=== PATIENT | female | born 1965 | race Caucasian/White ===

== ENCOUNTER 2017-01-11 23:28 | Observation (INO) | payer OTHER ==
[2017-01-11 23:42] VITALS: BMI 30.5
[2017-01-12] MEDS: Sodium Chloride 0.9% 1,000 ML IV STA ×2 (00:11→00:55)
[2017-01-12 00:56] LABS: PH,URINE 6.5 (4.7-8.0); URINE BILIRUBIN NEGATIVE (NEGATIVE); URINE BLOOD NEGATIVE (NEGATIVE); URINE GLUCOSE (UA) >=1000 mg/dL (NEGATIVE); URINE KETONE NEGATIVE (NEGATIVE); URINE LEUKOCYTE ESTERASE NEGATIVE Leu/uL (NEGATIVE); URINE PROTEIN NEGATIVE mg/dL (<30 mg/dL); URINE UROBILINOGEN 0.2 E.U./dL (<1 E.U./dL)
[2017-01-12 00:59] LABS: URINE APPEARANCE SL CLOUDY (CLEAR); URINE COLOR STRAW (YELLOW)
[2017-01-12 01:15] LABS: BASO # 0.02 K/mm3 (0.0-2.0); BASO % 0.3 % (0.0-3.0); EOS # 0.1 (0.0-0.7); EOS % 1.3 % (1.5-5.0); GRAN # 2.79 (1.4-6.5); HEMATOCRIT 43.3 % (36.0-48.0); LYMPH # 3.4 (1.2-3.4); LYMPH % 50.5 % (22.0-35.0); MEAN CELL VOLUME 83.4 fl (80.0-105.0); MEAN CORPUSCULAR HEMOGLOBIN 28.9 pg (25.0-35.0); MEAN CORPUSCULAR HGB CONC 34.6 g/dl (31.0-37.0); MEAN PLATELET VOLUME 10.3 fl (7.0-11.0); MONO # 0.5 (0.1-0.6); MONO % 6.9 % (1.0-6.0); RED CELL DISTRIBUTION WIDTH 13.3 % (11.5-14.5); WHITE BLOOD COUNT 6.8 10^3/ul (4.5-11.0)
[2017-01-12 01:20] LABS: INR 1.08 (0.93-1.08); PARTIAL THROMBOPLASTIN TIME 27.8 Seconds (23.7-30.8)
[2017-01-12 01:24] LABS: ALB/GLOB RATIO 1.3 (1.1-1.8); ALKALINE PHOSPHATASE 114 U/L (38-126); ALT/SGPT 46 U/L (7-56); AST/SGOT 38 U/L (14-36); BLOOD UREA NITROGEN 12 mg/dL (7-21); CALCIUM 9.5 mg/dL (8.4-10.5); CARBON DIOXIDE 29 mmol/L (21-33); CHLORIDE 100 mmol/L (98-107); GFR AFRICAN-AMERICAN > 60; LIPASE 86 U/L (23-300); POTASSIUM 3.7 mmol/L (3.6-5.0); SODIUM 140 mmol/L (132-148); TOTAL PROTEIN 7.2 g/dL (5.8-8.3)
--- NOTE | 2017-01-12 01:33 | ED PDOC ---
Arrival/HPI - General Chief Complaint: Trauma Time Seen by Provider: 01/12/17 00:04 Historian: Patient, Family - History of Present Illness Narrative History of Present Illness (Text): 01/12/17 01:29 51 yr old female with hx of DM and anemia presents today with syncope. pt states she was going to stand up from the chair and felt dizzy, developed chest pain and passed out. pt was found by son on the floor. pt c/o left leg pain. son states patient was a little confused when he first saw the patient but states she has returned to baseline now. pt c/o headache and dizziness. denies abdominal pain. denies back pain. no fever/chills. states she was feeling okay earlier today. no n/v/d. no other complaints. Time/Duration: Prior to Arrival Symptom Onset: Sudden Symptom Course: Improving Quality: Aching Severity Level: 8 Past Medical History - Provider Review Nursing Documentation Reviewed: Yes - Travel History Have you recently traveled outside [place] w/in the past 3 mons?: No - Cardiac Hx Cardiac Disorders: Yes Hx Angina: (chest pain) Hx Hypertension: Yes - Pulmonary Hx Respiratory Disorders: No - Neurological Hx Neurological Disorder: No - HEENT Hx HEENT Disorder: No - Renal Hx Renal Disorder: No - Endocrine/Metabolic Hx Endocrine Disorders: Yes Hx Diabetes Mellitus Type 1: Yes - Hematological/Oncological Hx Blood Disorders: No - Integumentary Hx Dermatological Disorder: No - Musculoskeletal/Rheumatological Hx Musculoskeletal Disorders: No - Gastrointestinal Hx Gastrointestinal Disorders: No - Genitourinary/Gynecological Hx Genitourinary Disorders: No - Psychiatric Hx Psychophysiologic Disorder: No Hx Substance Use: No - Past Surgical History Past Surgical History: Non-Contributing - Suicidal Assessment Feels Threatened In Home Enviroment: No Family/Social History - Physician Review Nursing Documentation Reviewed: Yes Family/Social History: Unknown Family HX Smoking Status: Never Smoked Hx Alcohol Use: No Hx Substance Use: No Hx Substance Use Treatment: No Allergies/Home Meds Allergies/Adverse Reactions: Allergies No Known Allergies Allergy (Verified 01/11/17 23:43) Home Medications: Home Meds Medication Instructions Recorded Confirmed Glyburide/Metformin HCl 1,000 mg PO BID 08/04/15 01/11/17 [Glucovance 5 mg-500 mg] Sitagliptin Phos/Metformin HCl 1 each PO DAILY 08/04/15 01/11/17 [Janumet 50-500 mg Tablet] Review of Systems - Review of Systems Constitutional: Fatigue. absent: Fevers Eyes: absent: Photophobia ENT: absent: Sinus Congestion Respiratory: absent: SOB, Cough Cardiovascular: Chest Pain, Palpitations Gastrointestinal: absent: Abdominal Pain, Nausea, Vomiting Genitourinary Female: absent: Dysuria Musculoskeletal: Arthralgias, Neck Pain. absent: Back Pain Skin: absent: Rash, Pruritis Neurological: Headache, Dizziness Psychiatric: absent: Anxiety, Depression, Suicidal Ideation Physical Exam Vital Signs Reviewed: Yes Vital Signs Temp Pulse Resp BP Pulse Ox 01/11/17 23:40 97.7 F 85 20 170/70 H 95 Temperature: Afebrile Blood Pressure: Hypertensive Pulse: Regular Respiratory Rate: Normal Appearance: Positive for: Well-Appearing, Non-Toxic, Comfortable Pain Distress: None Mental Status: Positive for: Alert and Oriented X 3 Finger Stick Blood Glucose: 342 - Systems Exam Head: Present: Atraumatic Pupils: Present: PERRL Extroacular Muscles: Present: EOMI Conjunctiva: Present: Normal Ears: Present: Normal Mouth: Present: Moist Mucous Membranes Pharnyx: Present: Normal Nose (External): Present: Atraumatic Nose (Internal): Present: Normal Inspection Neck: Present: Normal Range of Motion, Paraspinal Tenderness. No: MIDLINE TENDERNESS Respiratory/Chest: Present: Clear to Auscultation, Good Air Exchange. No: Respiratory Distress, Accessory Muscle Use Cardiovascular: Present: Regular Rate and Rhythm, Normal S1, S2. No: Murmurs Abdomen: Present: Normal Bowel Sounds. No: Tenderness, Distention, Peritoneal Signs, Rebound, Guarding Back: Present: Normal Inspection Upper Extremity: Present: Normal Inspection, Normal ROM, Capillary Refill < 2s Lower Extremity: Present: Normal Inspection, NORMAL PULSES, Normal ROM, Tenderness (+ ttp over the entire left leg; no edema, no erythema; no ecchymosis ; full rom of foot, ankle, knee, hip; pelvis stable ), Neurovascularly Intact, Capillary Refill < 2 s. No: CALF TENDERNESS, Swelling, Erythema, Deformity, Temperature Abnormalties Neurological: Present: GCS=15, Speech Normal, Motor Func Grossly Intact, Normal Sensory Function Skin: Present: Warm, Dry Psychiatric: Present: Alert, Oriented x 3 Medical Decision Making ED Course and Treatment: 01/12/17 01:35 51yr old female with syncope. c/o cp and dizziness. pt hypertensive. c/o entire left leg pain, but was able to ambulate to bathroom with assistance in ER. cbc; wnl cmp; glucose; 355 trop; wnl ekg; NSR at 84b/m no st elevations, normal axis, normal intervals. cxr: wnl ct head: FINDINGS: Brain: Minimal atrophy. No intracranial hemorrhage. No mass. No edema. Ventricles: No hydrocephalus. Bones/joints: No acute fracture. Soft tissues: Unremarkable. Sinuses: No acute sinusitis. Mastoid air cells: No mastoid effusion. Orbits: Unremarkable as visualized. IMPRESSION: 1. No intracranial hemorrhage. ct neck:FINDINGS: Vertebrae: No acute fracture. Straightening of cervical spine. Discs/spinal canal/neural foramina: Early to mild degenerative disc disease within mid cervical spine. Moderate degenerative disc disease within lower cervical spine. Disc herniations within mid to lower cervical spine, suboptimally evaluated. Mild indentation thecal sac/cord mid and lower cervical spine. Neuroforaminal narrowing within lower cervical spine. Soft tissues: Unremarkable. Thyroid: Calcification within LEFT lobe. Lung apices: Unremarkable as visualized. IMPRESSION: 1. No fracture. 2. Incidental/non-acute findings are described above. UA: wnl xrays of LEFT hip, femur, knee, tib/fib, foot; no fractures all results discussed with patient and family. ASA given Po case discussed with dr. fiore; she would like patient to be admitted to hospitalist. case discussed with dr. ruiz; accepts admission will admit observational status to tele for syncope, chest pain impression; syncope, chest pain admit observational status; tele. - Lab Interpretations Lab Results: 01/12/17 00:45 01/12/17 00:45 Lab Results 01/12/17 00:45: WBC 6.8 D, RBC 5.19, Hgb 15.0, Hct 43.3, MCV 83.4, MCH 28.9, MCHC 34.6, RDW 13.3, Plt Count 152, MPV 10.3, Gran % 41.0 L, Lymph % (Auto) 50.5 H, [place] % (Auto) 6.9 H, Eos % (Auto) 1.3 L, Baso % (Auto) 0.3, Gran # 2.79 , Lymph # 3.4, [place] # 0.5, Eos # 0.1, Baso # 0.02 01/12/17 00:45: Sodium 140, Potassium 3.7, Chloride 100, Carbon Dioxide 29, Anion Gap 15, BUN 12, Creatinine 0.7, Est GFR ( Amer) > 60, Est GFR (Non- Af Amer) > 60, Random Glucose 355 H* D, Calcium 9.5, Total Bilirubin 1.0, AST 38 H, ALT 46, Alkaline Phosphatase 114, Lactate Dehydrogenase 405, Total Creatine Kinase 96, Troponin I < 0.01, Total Protein 7.2, Albumin 4.1, Globulin 3.2, Albumin/Globulin Ratio 1.3, Lipase 86 01/12/17 00:45: PT 11.7, INR 1.08, APTT 27.8 01/12/17 00:40: Urine Color Straw, Urine Appearance Sl cloudy, Urine pH 6.5, Ur Specific [place] 1.010, Urine Protein Negative, Urine Glucose (UA) >=1000, Urine Ketones Negative, Urine Blood Negative, Urine Nitrate Negative, Urine Bilirubin Negative, Urine Urobilinogen 0.2, Ur Leukocyte Esterase Negative - RAD Interpretation Radiology Orders: 01/12/17 00:04 CERVICAL SPINE W/O CONTRAST [CT] Stat HEAD W/O CONTRAST [CT] Stat CHEST PORTABLE [RAD] Stat 01/12/17 00:11 FEMUR MIN 2 VIEWS LT [RAD] Stat FOOT LEFT 3 VIEWS ROUTINE [RAD] Stat HIP MIN 2V W/ PELVIS LT [RAD] Stat KNEE LEFT 2 VIEWS (AP & LAT) [RAD] Stat TIBIA FIBULA LEFT [RAD] Stat - Medication Orders Current Medication Orders: Sodium Chloride (Sodium Chloride 0.9%) 1,000 mls @ 999 mls/hr IV .Q1H1M STA Stop: 01/12/17 02:55 Discontinued Medications Aspirin (Aspirin) 325 mg PO STAT STA Stop: 01/12/17 02:00 Sodium Chloride (Sodium Chloride 0.9%) 1,000 mls @ 999 mls/hr IV .Q1H1M STA Stop: 01/12/17 01:05 Last Admin: 01/12/17 00:55 Dose: 999 mls/hr eMAR Start Stop Document 01/12/17 00:55 OCS (Rec: 09/29/17 00:55 OCS [id number]) Intravenous Solution Start Date 01/12/17 Start Time 00:55 Disposition/Present on Arrival - Present on Arrival Any Indicators Present on Arrival: No History of DVT/PE: No History of Uncontrolled Diabetes: No Urinary Catheter: No History of Decub. Ulcer: No History Surgical Site Infection Following: None - Disposition Have Diagnosis and Disposition been Completed?: Yes Diagnosis: Syncope, Chest pain, Hyperglycemia Disposition: HOSPITALIZED Disposition Time: 02:20 Patient Plan: Observation Condition: FAIR Discharge Instructions (ExitCare): Syncope (ED), Chest Pain (ED) Referrals: Sherrill Fiore MD [Primary Care Provider] - Follow up with primary Forms: [employer] (Gambian)
--- NOTE | 2017-01-12 01:44 | CT ---
EXAM: CT Head Without Intravenous Contrast CLINICAL HISTORY: 51 years old, female; Pain; Headache TECHNIQUE: Axial computed tomography images of the head/brain without intravenous contrast. All CT scans at this facility use one or more dose reduction techniques, viz.: automated exposure control; ma/kV adjustment per patient size (including targeted exams where dose is matched to indication; i.e. head); or iterative reconstruction technique. COMPARISON: No relevant prior studies available. FINDINGS: Brain: Minimal atrophy. No intracranial hemorrhage. No mass. No edema. Ventricles: No hydrocephalus. Bones/joints: No acute fracture. Soft tissues: Unremarkable. Sinuses: No acute sinusitis. Mastoid air cells: No mastoid effusion. Orbits: Unremarkable as visualized. IMPRESSION: 1. No intracranial hemorrhage.
--- NOTE | 2017-01-12 01:49 | CT ---
EXAM: CT Cervical Spine Without Intravenous Contrast CLINICAL HISTORY: 51 years old, female; Pain; Neck pain; Additional info: Neck pain/fall TECHNIQUE: Axial computed tomography images of the cervical spine without intravenous contrast. All CT scans at this facility use one or more dose reduction techniques, viz.: automated exposure control; ma/kV adjustment per patient size (including targeted exams where dose is matched to indication; i.e. head); or iterative reconstruction technique. Coronal and sagittal reformatted images were created and reviewed. COMPARISON: No relevant prior studies available. FINDINGS: Vertebrae: No acute fracture. Straightening of cervical spine. Discs/spinal canal/neural foramina: Early to mild degenerative disc disease within mid cervical spine. Moderate degenerative disc disease within lower cervical spine. Disc herniations within mid to lower cervical spine, suboptimally evaluated. Mild indentation thecal sac/cord mid and lower cervical spine. Neuroforaminal narrowing within lower cervical spine. Soft tissues: Unremarkable. Thyroid: Calcification within LEFT lobe. Lung apices: Unremarkable as visualized. IMPRESSION: 1. No fracture. 2. Incidental/non-acute findings are described above.
[2017-01-12 01:54] LABS: TROPONIN I < 0.01 ng/mL
[2017-01-12 01:55] LABS: GLUCOSE,RANDOM 355 mg/dL (70-110)
[2017-01-12] MEDS ORDERED: Sodium Chloride 0.9% 1,000 ML IV STA (01:55)
[2017-01-12] MEDS: Sodium Chloride 0.9% 1,000 ML IV SCH ×3 (03:45→23:30)
--- NOTE | 2017-01-12 03:54 | CP.PCM.HP ---
<Tolu Carreno - Last Filed: 01/12/17 04:14> History of Present Illness - History of Present Illness History of Present Illness: Chief Complaint Syncopal episode HPI Patient is a 51 year old Romanian speaking female with a past medical history of NIDDM who presents to the [facility] ED on 01/12/17 with complaints of passing out while at home. Patient states today she was sitting on her chair watching television when suddenly she felt the room was spinning around her accompanied with chest pain. She then states that she stood up and then fell to the floor which she does not remember. Patient states prior to this episode she felt diaphoretic, nauseous, and experienced tunnel vision. As per patient's son, he heard a loud thump and decided to check his mom to see what happened. He found her lying on the floor. Initially patient was no responsive but was able to wake up within a few minutes of son pushing her. Patient states she has never experienced this symptom before. Patient has had a stress test performed by Dr. aDvila in the past which revealed no acute abnormalities but has not had an echocardiogram done. Patient denies v/d/f/c, shortness of breath, abdominal pain , dysuria. Present on Admission - Present on Admission Any Indicators Present on Admission: No Review of Systems - Review of Systems Systems not reviewed;Unavailable: Acuity of Condition - Constitutional Constitutional: absent: Chills, Fever, Malaise - EENT Eyes: Change in Vision (tunnel vision prior to syncopal episode), Tunnel Vision Ears: absent: Decreased Hearing, Ear Discharge Nose/Mouth/Throat: absent: Nasal Congestion, Nasal Discharge - Cardiovascular Cardiovascular: Chest Pain, Diaphoresis - Respiratory Respiratory: absent: Cough, Dyspnea - Gastrointestinal Gastrointestinal: Nausea. absent: Abdominal Pain, Diarrhea, Vomiting - Genitourinary Genitourinary: absent: Difficulty Urinating, Dysuria, Urinary Incontinence - Neurological Neurological: Dizziness. absent: Numbness - Psychiatric Psychiatric: absent: Auditory Hallucinations, Visual Hallucinations Past Patient History - Past Social History Smoking Status: Never Smoked - CARDIAC Hx Cardiac Disorders: Yes Hx Angina: (chest pain) Hx Hypertension: Yes - PULMONARY Hx Respiratory Disorders: No - NEUROLOGICAL Hx Neurological Disorder: No - HEENT Hx HEENT Problems: No - RENAL Hx Chronic Kidney Disease: No - ENDOCRINE/METABOLIC Hx Endocrine Disorders: Yes Hx Diabetes Mellitus Type 1: Yes - HEMATOLOGICAL/ONCOLOGICAL Hx Blood Disorders: No - INTEGUMENTARY Hx Dermatological Problems: No - MUSCULOSKELETAL/RHEUMATOLOGICAL Hx Musculoskeletal Disorders: No - GASTROINTESTINAL Hx Gastrointestinal Disorders: No - GENITOURINARY/GYNECOLOGICAL Hx Genitourinary Disorders: No - PSYCHIATRIC Hx Psychophysiologic Disorder: No Hx Substance Use: No - SURGICAL HISTORY Hx Surgeries: No Meds Allergies/Adverse Reactions: Allergies Allergy/AdvReac Type Severity Reaction Status Date / Time No Known Allergies Allergy Verified 01/11/17 23:43 Physical Exam - Constitutional Appears: In Acute Distress - Head Exam Head Exam: ATRAUMATIC, NORMAL INSPECTION, NORMOCEPHALIC - Eye Exam Eye Exam: EOMI, Normal appearance - ENT Exam ENT Exam: Mucous Membranes Moist, Normal Exam - Neck Exam Neck exam: Positive for: Normal Inspection - Respiratory Exam Respiratory Exam: Clear to Auscultation Bilateral, NORMAL BREATHING PATTERN - Cardiovascular Exam Cardiovascular Exam: REGULAR RHYTHM, RRR, +S1, +S2 - GI/Abdominal Exam GI & Abdominal Exam: Normal Bowel Sounds, Soft. absent: Distended, Guarding - Extremities Exam Extremities exam: Positive for: calf tenderness, normal inspection - Back Exam Back exam: NORMAL INSPECTION - Neurological Exam Neurological exam: Alert, CN II-XII Intact, Oriented x3 - Skin Skin Exam: Normal Color, Warm Results - Vital Signs Recent Vital Signs: Last Vital Signs Temp 98.5 F 01/12/17 03:14 Pulse 82 01/12/17 03:14 Resp 18 01/12/17 03:14 BP 137/77 01/12/17 03:14 Pulse Ox 95 01/12/17 03:14 - Labs Result Diagrams: 01/12/17 00:45 01/12/17 00:45 Labs: Laboratory Results - last 24 hr 01/12/17 01/12/17 01/12/17 00:40 00:45 00:45 WBC RBC Hgb Hct MCV MCH MCHC RDW Plt Count MPV Gran % Lymph % (Auto) [place] % (Auto) Eos % (Auto) Baso % (Auto) Gran # Lymph # [place] # Eos # Baso # PT 11.7 INR 1.08 APTT 27.8 Sodium 140 Potassium 3.7 Chloride 100 Carbon Dioxide 29 Anion Gap 15 BUN 12 Creatinine 0.7 Est GFR ( Amer) > 60 Est GFR (Non-Af Amer) > 60 Random Glucose 355 H* D Calcium 9.5 Total Bilirubin 1.0 AST 38 H ALT 46 Alkaline Phosphatase 114 Lactate Dehydrogenase 405 Total Creatine Kinase 96 Troponin I < 0.01 Total Protein 7.2 Albumin 4.1 Globulin 3.2 Albumin/Globulin Ratio 1.3 Lipase 86 Urine Color Straw Urine Appearance Sl cloudy Urine pH 6.5 Ur Specific [place] 1.010 Urine Protein Negative Urine Glucose (UA) >=1000 Urine Ketones Negative Urine Blood Negative Urine Nitrate Negative Urine Bilirubin Negative Urine Urobilinogen 0.2 Ur Leukocyte Esterase Negative 01/12/17 00:45 WBC 6.8 D RBC 5.19 Hgb 15.0 Hct 43.3 MCV 83.4 MCH 28.9 MCHC 34.6 RDW 13.3 Plt Count 152 MPV 10.3 Gran % 41.0 L Lymph % (Auto) 50.5 H [place] % (Auto) 6.9 H Eos % (Auto) 1.3 L Baso % (Auto) 0.3 Gran # 2.79 Lymph # 3.4 [place] # 0.5 Eos # 0.1 Baso # 0.02 PT INR APTT Sodium Potassium Chloride Carbon Dioxide Anion Gap BUN Creatinine Est GFR ( Amer) Est GFR (Non-Af Amer) Random Glucose Calcium Total Bilirubin AST ALT Alkaline Phosphatase Lactate Dehydrogenase Total Creatine Kinase Troponin I Total Protein Albumin Globulin Albumin/Globulin Ratio Lipase Urine Color Urine Appearance Urine pH Ur Specific [place] Urine Protein Urine Glucose (UA) Urine Ketones Urine Blood Urine Nitrate Urine Bilirubin Urine Urobilinogen Ur Leukocyte Esterase Assessment & Plan - Assessment and Plan (Free Text) Plan: Assessment 51 year old female presenting with syncopal episode Plan 1.Syncope - CBC, BMP, Lipid panel, TSH, mg, phos; results pending - IVF NS@ 100 - Carotid and vertebral duplex; results pending - Neuro check q6 - Cardiac monitoring - Orthostatic vitals - Heart healthy diet; 2 g NA and low carb - Cardiology consulted; f/u with recommendations - Neurology consulted; f/u with recommendations 2.NIDDM - Humalin Mod insulin SC - Fingerstick q6 - HgA1c; result pending DVT prophylaxis - SCDs <Román Umana - Last Filed: 01/12/17 04:46> Results - Vital Signs Recent Vital Signs: Last Vital Signs Temp 98.5 F 01/12/17 03:14 Pulse 82 09/29/17 03:14 Resp 18 01/12/17 03:14 BP 137/77 01/12/17 03:14 Pulse Ox 95 01/12/17 03:14 - Labs Result Diagrams: 01/12/17 00:45 01/12/17 00:45 Attending/Attestation - Attestation I have personally seen and examined this patient.: Yes I have fully participated in the care of the patient.: Yes I have reviewed all pertinent clinical information: Yes Notes (Text): 01/12/17 04:45 Agree with history, physical examination, assessment and plan. She was in bed # 13 in the ER.
--- NOTE | 2017-01-12 08:25 | RAD ---
HISTORY: Syncope. Technique: Single view portable semi erect @ 01:03. COMPARISON: 08/04/2015 FINDINGS: LUNGS: No active pulmonary disease. PLEURA: No significant pleural effusion identified, no pneumothorax apparent. CARDIOVASCULAR: No radiographic findings to suggest acute or significant cardiovascular disease. OSSEOUS STRUCTURES: No significant abnormalities. VISUALIZED UPPER ABDOMEN: Normal. OTHER FINDINGS: None. IMPRESSION: No active disease. No significant interval change compared to the prior examination(s).
[2017-01-12] MEDS: Insulin Reg-MEDIUM-Coverage SC SCH ×3 (08:36→17:25)
--- NOTE | 2017-01-12 08:50 | RAD ---
PROCEDURE: Left Foot Radiographs. HISTORY: Fall COMPARISON: None. FINDINGS: BONES: There is no acute displaced fracture or bone destruction. There is diffuse bone demineralization. Bone alignment is normal. There is a prominent plantar calcaneal spur. JOINTS: Normal. SOFT TISSUES: Normal. OTHER FINDINGS: None. IMPRESSION: No acute displaced fracture or dislocation.
--- NOTE | 2017-01-12 08:51 | RAD ---
PROCEDURE: Left Knee Radiographs. HISTORY: Pain. COMPARISON: None. FINDINGS: BONES: There is no acute displaced fracture or bone destruction. Bone alignment and mineralization are normal JOINTS: Normal. No osteoarthritis. JOINT EFFUSION: None. OTHER FINDINGS: None. IMPRESSION: No acute fracture or dislocation.
--- NOTE | 2017-01-12 08:51 | RAD ---
PROCEDURE: Radiographs of the left tibia and fibula. HISTORY: Fall COMPARISON: None available. TECHNIQUE: Frontal and lateral views obtained. FINDINGS: BONES: There is no acute displaced fracture or bone destruction. There is diffuse bone demineralization. Bone alignment is normal. JOINT SPACES: Unremarkable. OTHER FINDINGS: None. IMPRESSION: No acute displaced fracture or dislocation.
--- NOTE | 2017-01-12 08:56 | RAD ---
PROCEDURE: Left Femur Radiographs. HISTORY: Fall COMPARISON: None. TECHNIQUE: AP and Lateral Radiographs of the left femur. FINDINGS: FEMUR: Bone alignment and mineralization are normal. There is no acute displaced fracture or bone destruction. SOFT TISSUES: Normal. OTHER FINDINGS: None. IMPRESSION: No acute displaced fracture or dislocation.
--- NOTE | 2017-01-12 08:57 | RAD ---
PROCEDURE: Left Hip X-ray Radiographs. HISTORY: Fall COMPARISON: None. FINDINGS: BONES: Bone alignment and mineralization are normal. 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 The sacroiliac joints are normal. There is mild osteitis pubis. SOFT TISSUES: Normal. OTHER FINDINGS: None. IMPRESSION: No acute displaced fracture or dislocation. Please note occult fractures cannot be excluded on plain radiographs. If there is a persistent clinical concern, an MRI of the hip may be performed for further evaluation.
--- NOTE | 2017-01-12 09:30 | CARD ---
APPROVED REPORT EKG Measurement Heart [id number] ID [id number] <Conclusion> Normal sinus rhythm Normal ECG No change
--- NOTE | 2017-01-12 17:13 | CP.PCM.CON ---
History of Present Illness - History of Present Illness History of Present Illness: Mrs. Pedraza is a 51-year-old woman with a past medical history of DM, who presented to the ED after passing out while at home. According to the patient and her son, who provides much of the history, she was sitting on her chair watching television when suddenly she felt the room was spinning around her accompanied with chest pain. She then states that she stood up and then fell to the floor which she does not remember. Prior to this episode she felt diaphoretic, nauseous, and experienced tunnel vision. As per patient's son, he heard a loud thump and decided to check his mom to see what happened. He found her lying on the floor. Initially patient was no responsive but was able to wake up within a few minutes of son pushing her. Now, the patient states that she still feels dizzy and nauseous. She feels generalized weakness and unstable when she walks. Review of Systems - Review of Systems All systems: reviewed and no additional remarkable complaints except Past Patient History - Past Social History Smoking Status: Never Smoked - CARDIAC Hx Hypertension: Yes - PULMONARY Hx Respiratory Disorders: No - NEUROLOGICAL Hx Neurological Disorder: No - HEENT Hx HEENT Problems: No - RENAL Hx Chronic Kidney Disease: No - ENDOCRINE/METABOLIC Hx Diabetes Mellitus Type 2: Yes - HEMATOLOGICAL/ONCOLOGICAL Hx Anemia: Yes - INTEGUMENTARY Hx Dermatological Problems: No - MUSCULOSKELETAL/RHEUMATOLOGICAL Hx Falls: No - GASTROINTESTINAL Hx Gastrointestinal Disorders: No - GENITOURINARY/GYNECOLOGICAL Hx Genitourinary Disorders: No - PSYCHIATRIC Hx Psychophysiologic Disorder: No Hx Substance Use: No - SURGICAL HISTORY Hx Surgeries: No Meds Allergies/Adverse Reactions: Allergies Allergy/AdvReac Type Severity Reaction Status Date / Time No Known Allergies Allergy Verified 01/11/17 23:43 - Medications Medications: Current Medications Acetaminophen (Tylenol 325mg Tab) 650 mg PO Q6H PRN PRN Reason: Pain, moderate (4-7) Last Admin: 01/12/17 13:15 Dose: 650 mg Hydralazine HCl (Apresoline) 10 mg IVP Q6 PRN PRN Reason: Systolic Blood Pressure Sodium Chloride (Sodium Chloride 0.9%) 1,000 mls @ 100 mls/hr IV .Q10H VARGAS Last Admin: 01/12/17 13:21 Dose: 100 mls/hr Insulin Human Regular (Humulin R Med) 0 units SC ACHS VARGAS PRN Reason: Protocol Last Admin: 01/12/17 13:21 Dose: Not Given Physical Exam - Constitutional Appears: Confused Additional comments: Does not really recall the events that took place and seems to be understating her difficulties. - Eye Exam Eye Exam: EOMI, Normal appearance, PERRL - ENT Exam ENT Exam: Mucous Membranes Moist, Normal Exam - Neck Exam Neck exam: Positive for: Normal Inspection - Respiratory Exam Respiratory Exam: Clear to Auscultation Bilateral, NORMAL BREATHING PATTERN - GI/Abdominal Exam GI & Abdominal Exam: Normal Bowel Sounds, Soft. absent: Tenderness - Rectal Exam Rectal Exam: Deferred - Extremities Exam Extremities exam: Positive for: normal inspection - Back Exam Back exam: NORMAL INSPECTION - Neurological Exam Neurological exam: Abnormal Gait, Alert, CN II-XII Intact, Oriented x3, Reflexes Normal Additional comments: No significant nystagmus noted, she has slight ataxia that appears to be more trunkal. Reflexes were normal, strength was symmetrical, sensation was intact to LT/P/T throughout. Plantar response was downgoing. Gait was wide based. - Psychiatric Exam Additional comments: Affect is flat - Skin Skin Exam: Dry, Intact, Normal Color, Warm Results - Vital Signs Recent Vital Signs: Last Vital Signs Temp 98.9 F 01/12/17 12:00 Pulse 77 01/12/17 14:00 Resp 18 01/12/17 06:00 BP 108/66 01/12/17 06:00 Pulse Ox 96 01/12/17 06:00 - Labs Result Diagrams: 01/12/17 00:45 01/12/17 00:45 Labs: Laboratory Results - last 24 hr 01/12/17 01/12/17 07:31 13:21 POC Glucose (mg/dL) 233 H 140 H Assessment & Plan (1) Syncope Assessment and Plan: Could be neuro-cardiogenic in origin; however, the patient continues to complain of vertigo and she had become syncopal. She still has difficulty with ambulation. I recommend the followin. Telemetry 2. MRI of the brain without contrast, and MRA of the head/neck without contrast 3. Echocardiogram 4. Fluids with NS at 100 mL/hr 5. Control serum glucose to maintain euglycemia 6. PT/OT eval and treat 7. Check serum lipids, HbA1c, TSH, B12, Folate 8. DVT Px Thank you. Status: Acute Priority: High
[2017-01-12] MEDS ORDERED: POLYETHYLENE GLYCOL 3350 17 GM/Dose PACKET PO ONE (20:11)
--- NOTE | 2017-01-12 21:35 | US ---
PROCEDURE: Bilateral carotid artery duplex ultrasound HISTORY: Carotid stenosis PHYSICIAN(S): Panchito Mcgrath MD. TECHNIQUE: Duplex sonography and color-flow Doppler were used to evaluate the carotid bifurcations and limited segments of the vertebral arteries bilaterally. FINDINGS: There is mild smooth heterogeneous plaque noted at the carotid bifurcations bilaterally. The peak systolic velocity in the proximal right internal carotid artery is 58 cm/sec. This corresponds to a 20 to 39% proximal right ICA stenosis. Normal systolic velocities are noted in the proximal right external carotid artery. There is antegrade flow in the right vertebral artery. The peak systolic velocity in the proximal left internal carotid artery is 72 cm/sec. This corresponds to a 20 to 39% proximal left ICA stenosis. Normal systolic velocities are noted in the proximal left external carotid artery. There is antegrade flow in the left vertebral artery. IMPRESSION: 1. Bilateral 20-39% proximal ICA stenoses. 2. Antegrade flow in both vertebral arteries.
[2017-01-13 01:02] VITALS: O2SAT 98
[2017-01-13] MEDS: Insulin Reg-MEDIUM-Coverage SC SCH ×3 (01:22→15:30)
--- NOTE | 2017-01-13 03:11 | PN ---
DATE: 01/12/2017 REASON FOR CONSULTATION: Followup cardiac evaluation, history of diabetes, complaining of chest pain, abdominal pain, and leg pain. BRIEF CLINICAL HISTORY: This is a 51-year-old Occitan speaking female with a past medical history of diabetes, hypertension, hyperlipidemia, admitted with fall, leg weakness, came to the [facility], [place] with complaint of, said that her leg was weak and that is why the patient feels that she will pass out or will fall, so the family brought here. Denies any chest pain. Denies any shortness of breath, denies any palpitation. PAST MEDICAL HISTORY: Significant for diabetes, hypertension, hyperlipidemia. PREVIOUS CARDIAC WORKUP: The patient had a stress test done 10/25/2016 that showed essentially fixed defect and no reversible ischemia, ejection fraction 72%. CURRENT MEDICATIONS: The patient is taking at home metformin, Janumet 50/500, glyburide 5 mg daily. ALLERGIES: NO KNOWN DRUG ALLERGY. REVIEW OF SYSTEMS: As per follow. PHYSICAL EXAMINATION VITAL SIGNS: Temperature afebrile, heart rate 77, blood pressure 129/82. HEENT: PERRLA. Extraocular ocular muscles intact. NECK: Supple. No carotid bruits or thyromegaly. HEART: S1 and S2 regular. CHEST: Clear to auscultation. ABDOMEN: Soft. EXTREMITIES: Clubbing and cyanosis negative. LABORATORY DATA: Blood workup as follows; WBC 22, hemoglobin 14, hematocrit 43.3, platelet count 152. Chemistry showed sodium 140, potassium 3.7, chloride 100, carbon dioxide 29, anion gap of 12, BUN 15, and creatinine 0.7. Troponin 0.01. Troponin remains negative. Recent stress test is negative. We will do orthostatic hypotension. Orthostatic hypotension was done recently and was found to be noted 129/82 sitting, 147/82 lying, and standing 131/87. No evidence of orthostatic hypotension. IMPRESSION: 1. Status post fall secondary to leg weakness. 2. Diabetes, hypertension, obesity. History of stress test 10/25/2016, no reversible ischemia. RECOMMENDATIONS: Discontinue telemetry. Continue rehab. Agree to get echo. We will follow with you. So, we will discontinue telemetry and further recommendation hospital course, we will get echo but we will discontinue telemetry. Okay to be discharged and follow up as outpatient. Thank you Dr. Mckinley for the opportunity in taking care of patient. So far, no evidence of acute DE. We will follow with you. We will discontinue telemetry. Further cardiac workup is planned at this time. Tanner Ariza MD
--- NOTE | 2017-01-13 07:43 | CARD ---
APPROVED REPORT EXAM: Two-dimensional and M-mode echocardiogram with Doppler and color Doppler. Other Information Quality : AverageRhythm : INDICATION Syncope 2D DIMENSIONS Left Atrium (2D)3.7 (1.6-4.0cm)IVSd1.1 (0.7-1.1cm) LVDd4.3 (3.9-5.9cm)PWd1.1 (0.7-1.1cm) LVDs3.1 (2.5-4.0cm)FS (%) 27.1 % LVEF (%)53.0 (>50%) M-Mode DIMENSIONS Aortic Root2.40 (2.2-3.7cm)Aortic Cusp Exc.1.30 (1.5-2.0cm) Aortic Valve AoV Peak Mduaflax643.0cm/s Mitral Valve E/A ratio0.0 TDI E/Lateral E'0.0E/Medial E'0.0 Tricuspid Valve TR Peak [id number]/sRAP [id number] Peak Gr.13mmHg [id number] LEFT VENTRICLE The left ventricle is normal size. There is normal left ventricular wall thickness. The left ventricular function is normal. The left ventricular ejection fraction is within the normal range. There is normal LV segmental wall motion. RIGHT VENTRICLE The right ventricle is normal size. ATRIA The left atrium size is normal. The right atrium size is normal. The interatrial septum is intact with no evidence for an atrial septal defect. AORTIC VALVE The aortic valve is normal in structure. MITRAL VALVE The mitral valve is normal in structure. Mitral regurgitation is trace. TRICUSPID VALVE The tricuspid valve is normal in structure. There is trace tricuspid regurgitation. GREAT VESSELS The aortic root is normal in size. PERICARDIAL EFFUSION There is no pericardial effusion. <Conclusion> The left ventricle is normal size. There is normal left ventricular wall thickness. The left ventricular function is normal.
[2017-01-13 08:18] LABS: BASO # 0.03 K/mm3 (0.0-2.0); BASO % 0.7 % (0.0-3.0); EOS # 0.1 (0.0-0.7); EOS % 2.2 % (1.5-5.0); GRAN # 1.53 (1.4-6.5); GRAN % 33.7 % (50.0-68.0); LYMPH # 2.4 (1.2-3.4); LYMPH % 53.3 % (22.0-35.0); MEAN CELL VOLUME 84.2 fl (80.0-105.0); MEAN CORPUSCULAR HEMOGLOBIN 28.5 pg (25.0-35.0); MEAN CORPUSCULAR HGB CONC 33.8 g/dl (31.0-37.0); MEAN PLATELET VOLUME 10.4 fl (7.0-11.0); MONO # 0.5 (0.1-0.6); MONO % 10.1 % (1.0-6.0); RED CELL DISTRIBUTION WIDTH 13.3 % (11.5-14.5); WHITE BLOOD COUNT 4.5 10^3/ul (4.5-11.0)
[2017-01-13] MEDS: Sodium Chloride 0.9% 1,000 ML IV SCH (09:22)
[2017-01-13 09:39] LABS: BLOOD UREA NITROGEN 9 mg/dL (7-21); CALCIUM 9.4 mg/dL (8.4-10.5); CARBON DIOXIDE 29 mmol/L (21-33); CHLORIDE 101 mmol/L (98-107); CHOLESTEROL 144 mg/dL (130-200); GFR AFRICAN-AMERICAN > 60; GLUCOSE,RANDOM 202 mg/dL (70-110); MAGNESIUM 1.7 mg/dL (1.7-2.2); PHOSPHOROUS 3.9 mg/dL (2.5-4.5); SODIUM 138 mmol/L (132-148)
[2017-01-13 09:40] LABS: TROPONIN I < 0.01 ng/mL
[2017-01-13] MEDS ORDERED: POLYETHYLENE GLYCOL 3350 17 GM/Dose PACKET PO SCH ×2 (10:00→18:00)
--- NOTE | 2017-01-13 11:38 | CP.PCM.PN ---
<KATHERINE MARTINEZ - Last Filed: 01/13/17 11:58> Subjective - Date & Time of Evaluation Date of Evaluation: 01/13/17 Time of Evaluation: 11:34 - Subjective Subjective: Medicine Progress Note: Pt seen and examined at bedside. Pt denies any acute overnight events. Pt c/o headache due to phonophobia. Pt has been OOB and ambulating. Pt denies any CP, SOB, n/v/d, chills, fever, abdominal pain, dysuria, fatigue, or dizziness. Objective - Vital Signs/Intake and Output Vital Signs (last 24 hours): Temp Pulse Resp BP Pulse Ox 98.0 F 88 20 146/89 98 01/13/17 06:00 01/13/17 06:00 01/13/17 06:00 01/13/17 06:00 01/13/17 06:00 - Medications Medications: Current Medications Acetaminophen (Tylenol 325mg Tab) 650 mg PO Q6H PRN PRN Reason: Pain, moderate (4-7) Last Admin: 01/13/17 09:08 Dose: 650 mg Hydralazine HCl (Apresoline) 10 mg IVP Q6 PRN PRN Reason: Systolic Blood Pressure Sodium Chloride (Sodium Chloride 0.9%) 1,000 mls @ 100 mls/hr IV .Q10H VARGAS Last Admin: 01/13/17 09:22 Dose: 100 mls/hr Insulin Human Regular (Humulin R Med) 0 units SC ACHS VARGAS PRN Reason: Protocol Last Admin: 01/13/17 09:08 Dose: 1 units Polyethylene Glycol (Miralax) 17 gm PO BID VARGAS - Labs Labs: 01/13/17 07:30 01/13/17 07:30 PT 11.7 Seconds (9.9-11.8) 01/12/17 00:45 INR 1.08 (0.93-1.08) 01/12/17 00:45 APTT 27.8 Seconds (23.7-30.8) 01/12/17 00:45 - Constitutional Appears: No Acute Distress - Head Exam Head Exam: ATRAUMATIC, NORMOCEPHALIC - Eye Exam Eye Exam: EOMI, PERRL - ENT Exam ENT Exam: Mucous Membranes Moist - Neck Exam Neck Exam: Full ROM. absent: Lymphadenopathy, Tenderness, Thyromegaly - Respiratory Exam Respiratory Exam: Clear to Ausculation Bilateral. absent: Rales, Rhonchi, Wheezes - Cardiovascular Exam Cardiovascular Exam: RRR. absent: Gallop, Rubs, Murmur - Extremities Exam Extremities Exam: Normal Inspection - Neurological Exam Neurological Exam: Alert, Awake, Oriented x3 - Psychiatric Exam Psychiatric exam: Normal Affect, Normal Mood - Skin Skin Exam: Dry, Intact, Normal Color, Warm Assessment and Plan - Assessment and Plan (Free Text) Assessment: 51 year old female with PMH of NIDDM being evaluated and treated for syncopal event. Plan: 1.Syncope - Admitted to telemetry for cardiac monitoring - Cardiology consulted; f/u with recommendations Clear from cardiology standpoint - Neurology consulted; f/u with recommendations MRI of the brain without contrast, and MRA of the head/neck without contrast Echocardiogram - Carotid and vertebral duplex showed 20-39% ICA stenosis - Neuro check q6 - F/u TSH - Orthostatic vitals WNL - Lipid panel WNL - Troponin negative x3 - IVF NS@ 100 - Heart healthy diet; 2 g NA and low carb 2.NIDDM - Humalin Mod insulin SC - Fingerstick q6 - HgA1c; result pending 3. HTN - Hydralazine 10 IVP q6 prn DVT prophylaxis - SCDs Pt discussed in detail with attending. Michael Martinez, PGY1 <Celi Moctezuma - Last Filed: 01/14/17 14:03> Objective - Vital Signs/Intake and Output Vital Signs (last 24 hours): Temp Pulse Resp BP Pulse Ox 97.8 F 91 H 16 142/89 98 01/13/17 12:00 01/13/17 12:00 01/13/17 12:00 01/13/17 12:00 01/13/17 06:00 - Labs Labs: 01/13/17 07:30 01/13/17 07:30 PT 11.7 Seconds (9.9-11.8) 01/12/17 00:45 INR 1.08 (0.93-1.08) 01/12/17 00:45 APTT 27.8 Seconds (23.7-30.8) 01/12/17 00:45 Attending/Attestation - Attestation I have personally seen and examined this patient.: Yes I have fully participated in the care of the patient.: Yes I have reviewed all pertinent clinical information, including history, physical exam and plan: Yes Notes (Text): I have seen and examined the patient at bedside. Agree with the note above with the following additions/ exceptions: Briefly this is 51 year old female with history of NIDDM who was admitted for evaluation of syncope. Patient will be admitted in tele. Serial cardiac iso and ekg wnl. Echo pending. Patient is cleared from cardiac standpoint. Neurologist recommended MRI and MRA. Patient still feel dizzy. PT eval pending. Upon discharge patient will follow up with Dr Adebayo Moctezuma
[2017-01-13 12:15] VITALS: BP 142/89; PULSE 91; RESP 16; TEMP 97.8
--- NOTE | 2017-01-13 12:55 | MRI ---
PROCEDURE: MRI BRAIN WITHOUT CONTRAST study is limited by motion artifact HISTORY: vertigo syncope COMPARISON: Correlation made with concurrent MRA brain and CT scan of the brain dated 01/12/2017 TECHNIQUE: Multiplanar, multisequence MR images of the brain were obtained without intravenous contrast enhancement. FINDINGS: HEMORRHAGE: No evidence of acute parenchymal, subarachnoid or extra-axial hemorrhage. No hemosiderin deposition identified on gradient echo weighted sequence DWI: No evidence of an acute or early subacute infarction seen on diffusion imaging. BRAIN PARENCHYMA: There appears to be some very minimal slightly confluent prolonged T2 signal changes seen in the perifrontal horn white matter which may in part be related to some FLAIR related CSF interface artifact and some concomitant minimal chronic sequela of small vessel disease. . Ventricular and sulcal size within range of normal this patient's stated age. VENTRICLES: No obstructive hydrocephalus. CRANIUM: Calvarium appears grossly unremarkable so far as can be seen. ORBITS: Orbits and contents grossly unremarkable. PARANASAL SINUSES/MASTOIDS: Clear VASCULAR SYSTEM: Visualized major vascular flow voids at skull base appear patent so far as can be seen OTHER FINDINGS: None. IMPRESSION: Limited motion degraded study. . No evidence of acute intracranial hemorrhage or infarct. Suspect minimal chronic white matter ischemic changes as described.
--- NOTE | 2017-01-13 13:21 | MRI ---
PROCEDURE: MR Angiography of the neck without contrast study is limited by motion artifact. HISTORY: Vertigo. Syncope, rule out VBI COMPARISON: Correlation made with concurrent MRA brain and prior carotid Doppler exam 01/12/2017 TECHNIQUE: 3D [id number] angiography of the neck was performed. Rotating maximum intensity projection images of the cervical carotid and vertebral arteries were generated. The origins of the common carotid arteries were not visualized, which is a limitation inherent to the non-contrast time of flight technique. . FINDINGS: RIGHT CAROTID ARTERIES: The visualized common carotid arteries, carotid bifurcations and internal carotid artery is widely patent. No evidence of occlusion nor significant stenosis so far as can be seen on this very limited motion degraded study with additional stairstep artifact. The vertebral arteries are relatively symmetric and patent throughout. The visualized basilar artery also patent. IMPRESSION: Very limited study due to significant motion. . No evidence of occlusion or significant stenosis so far as can be seen.
--- NOTE | 2017-01-13 13:31 | MRI ---
PROCEDURE: Magnetic Resonance Angiography Brain HISTORY: vertigo, syncope, rule out VBI COMPARISON: None available. TECHNIQUE: 3D time of flight MR angiography of the intracranial arteries was performed. Rotating maximum intensity projection images were generated. FINDINGS: INTERNAL CAROTID ARTERIES: Unremarkable. The skull base, petrous, cavernous and supraclinoid segments are bilaterally widely patient. ANTERIOR CEREBRAL ARTERIES: There is mild asymmetry of the A1 segments left-side of which is slightly larger in caliber/ more dominant than the right . There is also some minimal irregularity of the right A1 segment along its proximal margin possibly due to tortuous course or the possibility of a mild localized stenosis not excluded. MIDDLE CEREBRAL ARTERIES: Unremarkable. M1 and M2 segments are widely patent. Perisylvian branches poorly seen though appear relatively - grossly symmetric. POSTERIOR CIRCULATION: The vertebral arteries are patent and appear relatively symmetric. Basilar artery is also patent. . The proximal are patent as well without evidence of occlusion or significant stenosis. The P1, P2 and proximal P3 segments of the posterior cerebral arteries are patent. The distal posterior cerebral arteries are not visualized likely due to small caliber and slow flow. ANEURYSM/ VASCULAR MALFORMATIONS: No evidence of large aneurysm nor vascular malformation. OTHER FINDINGS: None. IMPRESSION: Limited motion degraded study. No evidence of a occlusion. Mild asymmetry of the A1 segments left-sided which is larger in caliber/ more dominant than the right side. Questionable mild narrowing proximal right A1 segment. . No evidence of large aneurysm nor vascular malformation.
--- NOTE | 2017-01-13 14:25 | CP.PCM.DIS ---
<KATHERINE MAYES - Last Filed: 01/13/17 14:06> Provider - Provider Date of Admission: 01/12/17 02:19 Attending physician: Celi Moctezuma MD Primary care physician: Sherrill Fiore MD Consults: Neuro: Koryo Cardio: Lola Time Spent in preparation of Discharge (in minutes): 45 Hospital Course - Lab Results Lab Results: Most Recent Lab Values WBC 4.5 10^3/ul (4.5-11.0) D 01/13/17 07:30 RBC 4.99 10^6/uL (3.5-6.1) 01/13/17 07:30 Hgb 14.2 g/dL (12.0-16.0) 01/13/17 07:30 Hct 42.0 % (36.0-48.0) 01/13/17 07:30 MCV 84.2 fl (80.0-105.0) 01/13/17 07:30 MCH 28.5 pg (25.0-35.0) 01/13/17 07:30 MCHC 33.8 g/dl (31.0-37.0) 01/13/17 07:30 RDW 13.3 % (11.5-14.5) 01/13/17 07:30 Plt Count 140 10^3/uL (120.0-450.0) 01/13/17 07:30 MPV 10.4 fl (7.0-11.0) 01/13/17 07:30 Gran % 33.7 % (50.0-68.0) L 01/13/17 07:30 Lymph % (Auto) 53.3 % (22.0-35.0) H 01/13/17 07:30 Starr % (Auto) 10.1 % (1.0-6.0) H 01/13/17 07:30 Eos % (Auto) 2.2 % (1.5-5.0) 01/13/17 07:30 Baso % (Auto) 0.7 % (0.0-3.0) 01/13/17 07:30 Gran # 1.53 (1.4-6.5) 01/13/17 07:30 Lymph # 2.4 (1.2-3.4) 01/13/17 07:30 Starr # 0.5 (0.1-0.6) 01/13/17 07:30 Eos # 0.1 (0.0-0.7) 01/13/17 07:30 Baso # 0.03 K/mm3 (0.0-2.0) 01/13/17 07:30 PT 11.7 Seconds (9.9-11.8) 01/12/17 00:45 INR 1.08 (0.93-1.08) 01/12/17 00:45 APTT 27.8 Seconds (23.7-30.8) 01/12/17 00:45 Sodium 138 mmol/L (132-148) 01/13/17 07:30 Potassium 4.0 mmol/L (3.6-5.0) 01/13/17 07:30 Chloride 101 mmol/L (98-107) 01/13/17 07:30 Carbon Dioxide 29 mmol/L (21-33) 01/13/17 07:30 Anion Gap 12 (10-20) 01/13/17 07:30 BUN 9 mg/dL (7-21) 01/13/17 07:30 Creatinine 0.6 mg/dL (0.5-1.4) 01/13/17 07:30 Est GFR ( Amer) > 60 01/13/17 07:30 Est GFR (Non-Af Amer) > 60 01/13/17 07:30 POC Glucose (mg/dL) 256 mg/dL (65-110) H 01/13/17 11:26 Random Glucose 202 mg/dL (70-110) H 01/13/17 07:30 Calcium 9.4 mg/dL (8.4-10.5) 01/13/17 07:30 Phosphorus 3.9 mg/dL (2.5-4.5) 01/13/17 07:30 Magnesium 1.7 mg/dL (1.7-2.2) 01/13/17 07:30 Total Bilirubin 1.0 mg/dL (0.2-1.3) 01/12/17 00:45 AST 38 U/L (14-36) H 01/12/17 00:45 ALT 46 U/L (7-56) 01/12/17 00:45 Alkaline Phosphatase 114 U/L (38-126) 01/12/17 00:45 Lactate Dehydrogenase 329 U/L (333-699) L 01/13/17 07:30 Total Creatine Kinase 46 U/L (35-230) 01/13/17 07:30 Troponin I < 0.01 ng/mL 01/13/17 07:30 Total Protein 7.2 g/dL (5.8-8.3) 01/12/17 00:45 Albumin 4.1 g/dL (3.0-4.8) 01/12/17 00:45 Globulin 3.2 gm/dL 01/12/17 00:45 Albumin/Globulin Ratio 1.3 (1.1-1.8) 01/12/17 00:45 Triglycerides 94 mg/dL (35-160) 01/13/17 07:30 Cholesterol 144 mg/dL (130-200) 01/13/17 07:30 LDL Cholesterol Direct 96 mg/dL (0-129) 01/13/17 07:30 HDL Cholesterol 32 mg/dL (29-60) 01/13/17 07:30 Lipase 86 U/L (23-300) 01/12/17 00:45 TSH 3rd Generation 0.54 mIU/mL (0.46-4.68) 01/13/17 07:30 Urine Color Straw (YELLOW) 01/12/17 00:40 Urine Appearance Sl cloudy (CLEAR) 01/12/17 00:40 Urine pH 6.5 (4.7-8.0) 01/12/17 00:40 Ur Specific [place] 1.010 (1.005-1.035) 01/12/17 00:40 Urine Protein Negative mg/dL (<30 mg/dL) 01/12/17 00:40 Urine Glucose (UA) >=1000 mg/dL (NEGATIVE) 01/12/17 00:40 Urine Ketones Negative mg/dL (NEGATIVE) 01/12/17 00:40 Urine Blood Negative (NEGATIVE) 01/12/17 00:40 Urine Nitrate Negative (NEGATIVE) 01/12/17 00:40 Urine Bilirubin Negative (NEGATIVE) 01/12/17 00:40 Urine Urobilinogen 0.2 E.U./dL (<1 E.U./dL) 01/12/17 00:40 Ur Leukocyte Esterase Negative Carlene/uL (NEGATIVE) 01/12/17 00:40 - Hospital Course Hospital Course: Patient is a 51 year old Sinhala speaking female with a past medical history of NIDDM who presented to the [facility] ED on 01/12/17 with complaints of passing out while at home. Patient stated today she was sitting on her chair watching television when suddenly she felt the room was spinning around her accompanied with chest pain. She then stated that she stood up and then fell to the floor which she did not remember. Patient states prior to this episode she felt diaphoretic, nauseous, and experienced tunnel vision. As per patient's son, he heard a loud thump and decided to check his mom to see what happened. He found her lying on the floor. Initially patient was no responsive but was able to wake up within a few minutes of son pushing her. Patient stated she has never experienced this symptom before. Patient had a stress test performed by Dr. Davila in the past which revealed no acute abnormalities but has not had an echocardiogram done. In the ED, labs and imaging were obtained. Labs were unremarkable, including negative troponins x3. All x-rays and cervical CT were normal. Pt was admitted for evaluation and treatment for syncopal event. Carotid doppler US was obtained that showed 20-39% ICA stenosis. Cardiology was consulted for possible cardiac cause of syncope. Echo was obtained that showed LVEF of 53%. Neuro was consulted and cleared patient after brain MRI, head MRA, and neck MRA were negative. Today, pt seen and examined at bedside. Pt denies any acute overnight events. Pt c/o headache due to phonophobia. Pt has been OOB and ambulating. Pt denies any CP, SOB, n/v/d, chills, fever, abdominal pain, dysuria, fatigue, or dizziness. Pt was discharged and advised to follow up with PMD. Discharge Exam - Head Exam Head Exam: ATRAUMATIC, NORMOCEPHALIC - Eye Exam Eye Exam: EOMI, PERRL - ENT Exam ENT Exam: Mucous Membranes Moist - Neck Exam Neck exam: Full Rom - Respiratory Exam Respiratory Exam: Clear to PA & Lateral. absent: Rales, Rhonchi, Wheezes, Respiratory Distress - Cardiovascular Exam Cardiovascular Exam: RRR. absent: Gallop, Rubs, Systolic Murmur - GI/Abdominal Exam GI & Abdominal Exam: Soft. absent: Distended, Guarding, Mass, Organomegaly, Rebound, Tenderness - Extremities Exam Extremities exam: normal inspection - Neurological Exam Neurological exam: Alert, Oriented x3 - Psychiatric Exam Psychiatric exam: Normal Affect, Normal Mood - Skin Skin Exam: Dry, Intact, Normal Color, Warm Discharge Plan - Follow Up Plan Condition: FAIR Disposition: HOME/ ROUTINE Instructions: Chest Pain (DC), Chest Pain (GEN), Syncope (DC), Syncope (GEN) Additional Instructions: 1. Follow up with PMD within 1 week 2. Follow up with neurology within 1 week 3. Follow up with cardiology within 1 week 4. Take medications as prescribed 5. Return to ED if symptoms worsen Referrals: Sherrill Fiore MD [Primary Care Provider] - Turner Pena MD [Staff Provider] - Tanner Davila MD [Staff Provider] - <Celi Moctezuma - Last Filed: 01/14/17 14:13> Provider - Provider Date of Admission: 01/12/17 02:19 Attending physician: Celi Moctezuma MD Primary care physician: Sherrill Fiore MD Hospital Course - Lab Results Lab Results: Most Recent Lab Values WBC 4.5 10^3/ul (4.5-11.0) D 01/13/17 07:30 RBC 4.99 10^6/uL (3.5-6.1) 01/13/17 07:30 Hgb 14.2 g/dL (12.0-16.0) 01/13/17 07:30 Hct 42.0 % (36.0-48.0) 01/13/17 07:30 MCV 84.2 fl (80.0-105.0) 01/13/17 07:30 MCH 28.5 pg (25.0-35.0) 01/13/17 07:30 MCHC 33.8 g/dl (31.0-37.0) 01/13/17 07:30 RDW 13.3 % (11.5-14.5) 01/13/17 07:30 Plt Count 140 10^3/uL (120.0-450.0) 01/13/17 07:30 MPV 10.4 fl (7.0-11.0) 01/13/17 07:30 Gran % 33.7 % (50.0-68.0) L 01/13/17 07:30 Lymph % (Auto) 53.3 % (22.0-35.0) H 01/13/17 07:30 Starr % (Auto) 10.1 % (1.0-6.0) H 01/13/17 07:30 Eos % (Auto) 2.2 % (1.5-5.0) 01/13/17 07:30 Baso % (Auto) 0.7 % (0.0-3.0) 01/13/17 07:30 Gran # 1.53 (1.4-6.5) 01/13/17 07:30 Lymph # 2.4 (1.2-3.4) 01/13/17 07:30 Starr # 0.5 (0.1-0.6) 01/13/17 07:30 Eos # 0.1 (0.0-0.7) 01/13/17 07:30 Baso # 0.03 K/mm3 (0.0-2.0) 01/13/17 07:30 PT 11.7 Seconds (9.9-11.8) 01/12/17 00:45 INR 1.08 (0.93-1.08) 01/12/17 00:45 APTT 27.8 Seconds (23.7-30.8) 01/12/17 00:45 Sodium 138 mmol/L (132-148) 01/13/17 07:30 Potassium 4.0 mmol/L (3.6-5.0) 01/13/17 07:30 Chloride 101 mmol/L (98-107) 01/13/17 07:30 Carbon Dioxide 29 mmol/L (21-33) 01/13/17 07:30 Anion Gap 12 (10-20) 01/13/17 07:30 BUN 9 mg/dL (7-21) 01/13/17 07:30 Creatinine 0.6 mg/dL (0.5-1.4) 01/13/17 07:30 Est GFR ( Amer) > 60 01/13/17 07:30 Est GFR (Non-Af Amer) > 60 01/13/17 07:30 POC Glucose (mg/dL) 264 mg/dL (65-110) H 01/13/17 15:25 Random Glucose 202 mg/dL (70-110) H 01/13/17 07:30 Calcium 9.4 mg/dL (8.4-10.5) 01/13/17 07:30 Phosphorus 3.9 mg/dL (2.5-4.5) 01/13/17 07:30 Magnesium 1.7 mg/dL (1.7-2.2) 01/13/17 07:30 Total Bilirubin 1.0 mg/dL (0.2-1.3) 01/12/17 00:45 AST 38 U/L (14-36) H 01/12/17 00:45 ALT 46 U/L (7-56) 01/12/17 00:45 Alkaline Phosphatase 114 U/L (38-126) 01/12/17 00:45 Lactate Dehydrogenase 329 U/L (333-699) L 01/13/17 07:30 Total Creatine Kinase 46 U/L (35-230) 01/13/17 07:30 Troponin I < 0.01 ng/mL 01/13/17 07:30 Total Protein 7.2 g/dL (5.8-8.3) 01/12/17 00:45 Albumin 4.1 g/dL (3.0-4.8) 01/12/17 00:45 Globulin 3.2 gm/dL 01/12/17 00:45 Albumin/Globulin Ratio 1.3 (1.1-1.8) 01/12/17 00:45 Triglycerides 94 mg/dL (35-160) 01/13/17 07:30 Cholesterol 144 mg/dL (130-200) 01/13/17 07:30 LDL Cholesterol Direct 96 mg/dL (0-129) 01/13/17 07:30 HDL Cholesterol 32 mg/dL (29-60) 01/13/17 07:30 Lipase 86 U/L (23-300) 01/12/17 00:45 Vitamin B12 377 pg/mL (239-931) 01/13/17 08:00 Folate 13.4 ng/mL 01/13/17 08:00 TSH 3rd Generation 0.54 mIU/mL (0.46-4.68) 01/13/17 07:30 Urine Color Straw (YELLOW) 01/12/17 00:40 Urine Appearance Sl cloudy (CLEAR) 01/12/17 00:40 Urine pH 6.5 (4.7-8.0) 01/12/17 00:40 Ur Specific [place] 1.010 (1.005-1.035) 01/12/17 00:40 Urine Protein Negative mg/dL (<30 mg/dL) 01/12/17 00:40 Urine Glucose (UA) >=1000 mg/dL (NEGATIVE) 01/12/17 00:40 Urine Ketones Negative mg/dL (NEGATIVE) 01/12/17 00:40 Urine Blood Negative (NEGATIVE) 01/12/17 00:40 Urine Nitrate Negative (NEGATIVE) 01/12/17 00:40 Urine Bilirubin Negative (NEGATIVE) 01/12/17 00:40 Urine Urobilinogen 0.2 E.U./dL (<1 E.U./dL) 01/12/17 00:40 Ur Leukocyte Esterase Negative Carlene/uL (NEGATIVE) 01/12/17 00:40 Attending/Attestation - Attestation I have personally seen and examined this patient.: Yes I have fully participated in the care of the patient.: Yes I have reviewed all pertinent clinical information, including history, physical exam and plan: Yes Notes (Text): I have seen and examined the patient at bedside. Agree with the note above with the following additions/ exceptions: Briefly this is 51 year old female with history of NIDDM who was admitted for evaluation of syncope. Patient was monitored in telemetry. Serial cardiac iso and ekg wnl. Echo is also normal. Patient is cleared from cardiac standpoint. Neurologist recommended MRI and MRA which was within normal limits. Patient denies feeling dizzy and is able to walk without any problem. PT eval pending however patient reports that she has no trouble walking in steady state. Orthostatics negative. During hospital stay patient had extensive work up and there was no identified cause of syncope. Patient was advised that she may need outpatient work up including table testing / holter monitor or EEG if she has any recurrent episode of syncope. Upon discharge patient will follow up with Dr Adebayo Moctezuma
[2017-01-13 17:34] LABS: FOLATE 13.4 ng/mL
== END 2017-01-13 17:47 | disposition home or self-care (01) ==
LOC: ED 23:28 → ERH 01-12 02:19 → 2RNO 01-12 04:43 → 3RNO 01-13 13:46
PROVIDERS: ADMIT Internal Medicine; ATTEND Hospitalist
DX: R55 Syncope and collapse (principal); R07.9 Chest pain, unspecified; I10 Essential (primary) hypertension; E11.65 Type 2 diabetes mellitus with hyperglycemia; E66.9 Obesity, unspecified; I65.29 Occlusion and stenosis of unspecified carotid artery; E78.5 Hyperlipidemia, unspecified; R53.1 Weakness; Z79.84 Long term (current) use of oral hypoglycemic drugs
CPT/HCPCS: 36415; 70450; 70544; 70547; 70551; 71010; 72125; 73502; 73552; 73560; 73590; 73630; 80048; 80053; 80061; 81003; 82550; 82607; 82746; 82948; 83036; 83615; 83690; 83735; 84100; 84443; 84484; 85025; 85610; 85730; 93005; 93306; 93880; 99285; G0378; J7040

== ENCOUNTER 2017-06-05 23:46 | Emergency (ER) | payer MEDICAID, OTHER ==
[2017-06-05 23:46] VITALS: BMI 30.5
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
[2017-06-06 02:42] LABS: BASO # 0.01 K/mm3 (0.0-2.0); BASO % 0.1 % (0.0-3.0); EOS # 0.1 (0.0-0.7); EOS % 1.5 % (1.5-5.0); GRAN # 2.45 (1.4-6.5); GRAN % 36.2 % (50.0-68.0); HEMOGLOBIN 14.5 g/dL (12.0-16.0); LYMPH # 3.8 (1.2-3.4); LYMPH % 55.5 % (22.0-35.0); MEAN CELL VOLUME 86.1 fl (80.0-105.0); MEAN CORPUSCULAR HEMOGLOBIN 28.9 pg (25.0-35.0); MEAN CORPUSCULAR HGB CONC 33.6 g/dl (31.0-37.0); MEAN PLATELET VOLUME 10.9 fl (7.0-11.0); MONO # 0.5 (0.1-0.6); MONO % 6.7 % (1.0-6.0); RBC 5.02 10^6/uL (3.5-6.1); RED CELL DISTRIBUTION WIDTH 13.8 % (11.5-14.5); WHITE BLOOD COUNT 6.8 10^3/ul (4.5-11.0)
[2017-06-06 02:43] LABS: URINE BILIRUBIN NEGATIVE (NEGATIVE); URINE BLOOD NEGATIVE (NEGATIVE); URINE GLUCOSE (UA) >=1000 mg/dL (NEGATIVE); URINE LEUKOCYTE ESTERASE NEGATIVE Leu/uL (NEGATIVE); URINE NITRATE NEGATIVE (NEGATIVE); URINE PROTEIN NEGATIVE mg/dL (<30 mg/dL); URINE UROBILINOGEN 0.2 E.U./dL (<1 E.U./dL)
[2017-06-06 02:45] LABS: URINE APPEARANCE CLEAR (CLEAR); URINE COLOR STRAW (YELLOW)
[2017-06-06 02:46] LABS: HCG,QUALITATIVE URINE NEGATIVE (NEGATIVE)
[2017-06-06 02:47] LABS: ALB/GLOB RATIO 1.2 (1.1-1.8); ALBUMIN 3.9 g/dL (3.0-4.8); ALT/SGPT 33 U/L (7-56); AST/SGOT 29 U/L (14-36); BLOOD UREA NITROGEN 21 mg/dL (7-21); CALCIUM 9.6 mg/dL (8.4-10.5); GFR AFRICAN-AMERICAN > 60; GFR NON-AFRICAN AMERICAN > 60
[2017-06-06 02:58] LABS: ACETAMINOPHEN < 10.0 ug/ml (10.0-20.0); SALICYLATE < 1 mg/dL (2.0-20.0)
[2017-06-06 03:40] LABS: BARBITURATES, UR NEGATIVE (NEGATIVE); BENZODIAZEPINES, UR NEGATIVE (NEGATIVE); OPIATES, UR NEGATIVE (NEGATIVE); PHENCYCLIDINE, UR NEGATIVE (NEGATIVE)
[2017-06-06 05:19] VITALS: BP 126/66; PULSE 85; RESP 19; TEMP 98; O2SAT 100
--- NOTE | 2017-06-06 09:48 | RAD ---
HISTORY: PES eval COMPARISON: 01/12/2017 FINDINGS: LUNGS: No active pulmonary disease. PLEURA: No significant pleural effusion identified, no pneumothorax apparent. CARDIOVASCULAR: Normal. OSSEOUS STRUCTURES: No significant abnormalities. VISUALIZED UPPER ABDOMEN: Normal. OTHER FINDINGS: None. IMPRESSION: No active disease.
--- NOTE | 2017-06-06 21:59 | CARD ---
APPROVED REPORT EKG Measurement Heart [id number] <Conclusion> Normal sinus rhythm Normal ECG
== END 2017-06-06 07:19 | disposition home or self-care (01) ==
LOC: ED 23:46
DX: F32.9 Major depressive disorder, single episode, unspecified (principal); E11.9 Type 2 diabetes mellitus without complications; I10 Essential (primary) hypertension

== ENCOUNTER 2018-03-09 20:03 | Emergency (ER) | payer MEDICAID ==
[2018-03-09 20:04] VITALS: BMI 30.5
[2018-03-09] MEDS ORDERED: TDAP Vaccine 0.5 mL Syr IM ONE (20:41)
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
[2018-03-09 21:32] VITALS: RESP 18; TEMP 97.9
[2018-03-09] MEDS: Amoxicillin-Clav 875-125 mg Tab PO STA ×2 (21:54→22:59)
[2018-03-10 04:16] VITALS: BP 118/79; PULSE 85; O2SAT 100
--- NOTE | 2018-03-10 08:08 | CARD ---
APPROVED REPORT Date of service: 03/09/2018 EKG Measurement Heart [id number] <Conclusion> Normal sinus rhythm Small q waves 2,3,F Prolonged QTc No change
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
== END 2018-03-09 23:00 | disposition left against medical advice (07) ==
LOC: ED 20:03
DX: S61.451A Open bite of right hand, initial encounter (principal); Y04.1XXA Assault by human bite, initial encounter; Y92.9 Unspecified place or not applicable; R42 Dizziness and giddiness